=== PATIENT | male | born 1965 | race Caucasian/White ===

== ENCOUNTER 2016-03-21 12:42 | Outpatient (CLI) | payer OTHER ==
[~2016-03-21 12:42] MED LIST: ALEVE220 MG PO; B-125000 MC1 PO; FISH OIL1000 M1; MULTIPLE VITAMIN PO
--- NOTE | 2016-03-21 14:33 | DIAGNOSTIC IMAGING REPORT ---
PROCEDURE: MR LUMBAR SPINE W/O CONTRAST INDICATION: LUMBAR DISC PROPLAPS W/RADICULOPATHY TECHNIQUE: Noncontrast T1, T2, and STIR sagittal images. T1 and T2 axial images. COMPARISON: Lumbar spine MRI 01/13/2015 FINDINGS: Normal alignment without fracture or suspicious osseous lesion. Mild spur formation throughout the lumbar spine with mild L1-2, L2-3 and L3-4 disc space narrowing. Normal conus. Paraspinal soft tissues are normal. L1-2: Normal appearance. L2-3: Minor disc bulge. L3-4: Small broad-based disc bulge/spur complex with mild facet arthropathy. No spinal or foraminal stenosis. L4-5: Small right foraminal/lateral disc bulge/spur complex superimposed on a broad-based disc bulge associated with mild to moderate facet arthropathy. Mild right foraminal stenosis. No spinal stenosis. No significant interval change. L5-S1: Small left foraminal disc bulge with radial tear associated mild facet arthropathy. There is mild left foraminal stenosis. No significant interval change. IMPRESSION: 1. Mild degenerative changes 2. Small L4-5 right foraminal disc bulge with mild right foraminal stenosis, unchanged 3. Small L5-S1 left foraminal disc bulge with radial tear and mild left foraminal stenosis, unchanged
== END 2016-03-21 23:00 ==
LOC: MRI SRH 12:42
DX: M48.06 Spinal stenosis, lumbar region (principal); M51.26 Other intervertebral disc displacement, lumbar region